=== PATIENT | female | born 1980 | race Two or more races ===

== ENCOUNTER 2019-07-25 10:00 | Emergency (ER) | payer OTHER ==
[~2019-07-25] VITALS: Ht 162.6 cm; Wt 92.5 kg
== END 2019-07-25 13:34 | disposition home or self-care (01) ==
LOC: ER 10:00
DX: N39.0 Urinary tract infection, site not specified (principal); B95.7 Other staphylococcus as the cause of diseases classified elsewhere; R31.0 Gross hematuria

== ENCOUNTER → 2019-07-31 | Emergency (ER) | payer OTHER | END | disposition left against medical advice (07) | LOC: ER 17:03 | DX: Z53.20 Procedure and treatment not carried out because of patient's decision for unspecified reasons (principal) ==

== ENCOUNTER 2020-06-15 20:08 | Emergency (ER) | payer OTHER ==
[~2020-06-15] VITALS: Ht 154.9 cm; Wt 80.3 kg
== END 2020-06-15 21:57 | disposition home or self-care (01) ==
LOC: ER 20:08
DX: H10.13 Acute atopic conjunctivitis, bilateral (principal)

== ENCOUNTER 2022-01-27 19:46 | Emergency (ER) | payer OTHER ==
[~2022-01-27] VITALS: Ht 165.1 cm; Wt 76.2 kg
== END 2022-01-27 23:30 | disposition home or self-care (01) ==
LOC: ER 19:46
DX: M25.551 Pain in right hip (principal)